=== PATIENT | male | born 1995 | race African-American/Black ===

== ENCOUNTER 2022-05-19 13:10 | Emergency (ER) | payer BC ==
[~2022-05-19] VITALS: Ht 182 cm; Wt 124.2 kg
[2022-05-19 13:15] VITALS: BP 155/94
--- NOTE | 2022-05-19 13:52 | ED Integumentary General ---
General Chief Complaint: Bite-Animal/Human/Insect Stated Complaint: SPIDER BITE Nursing Triage Note: THINKS HE WAS BIT ON HIS LOWER RIGHT LEG BY A SPIDER. PAIN, REDNESS, SWELLING STARTING YESTERDAY. Source: patient Exam Limitations: no limitations History of Present Illness Date Seen by Provider: May 19, 2022 Time Seen by Provider: 13:50 Initial Comments to ER with redness and tenderness to the right lateral lower leg. Suspects a spider bite though he did not see anything bite him. This started yesterday. No systemic symptoms. Timing/Duration: constant Severity: moderate Location: extremities Associated Symptoms: denies symptoms Allergies and Home Medications Allergies Coded Allergies: No Known Drug Allergies (Unverified , 10/19/15) Patient Home Medication List Home Medication List Reviewed: Yes Doxycycline Hyclate (Doxycycline Hyclate) 100 Mg Tablet, 100 MG PO BID Prescribed by: SANYA VIDAL on 05/19/221425 Hydrocodone/Acetaminophen (Hydrocodone-Acetamin 5-325 mg) 5 Mg-325 Mg Tablet, 1 TAB PO Q4H PRN for PAIN-MODERATE (5-7) Prescribed by: SANYA VIDAL on 05/19/221425 Review of Systems Review of Systems Constitutional: see HPI EENTM: see HPI Respiratory: no symptoms reported Cardiovascular: no symptoms reported Genitourinary: no symptoms reported Musculoskeletal: no symptoms reported Skin: no symptoms reported Psychiatric/Neurological: No Symptoms Reported Endocrine: No Symptoms Reported Hematologic/Lymphatic: No Symptoms Reported Past Ffcpmxw-Bftuzk-Pgurqz Hx Patient Social History Tobacco Use?: No Substance use?: No Alcohol Use?: Yes Alcohol Frequency: Once in a while Immunizations Up To Date Tetanus Booster (TDap): More than 5yrs Second COVID19 Vaccination Brendan: UNKNOWN COVID19 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: FILOMENA Past Medical History Reproductive Disorders: No Physical Exam Vital Signs Vital Signs - First Documented 05/19/22 13:15 Temp 36.8 Pulse 58 Resp 16 B/P (MAP) 155/94 (114) Pulse Ox 97 O2 Delivery Room Air Capillary Refill : Less Than 3 Seconds General Appearance: WD/WN, no apparent distress HEENT: PERRL/EOMI, normal ENT inspection Neck: non-tender, full range of motion Cardiovascular: regular rate, rhythm, no murmur Respiratory: normal breath sounds, no respiratory distress, no accessory muscle use Extremities: normal range of motion, non-tender Neurologic/Psychiatric: alert, normal mood/affect, oriented x 3 Skin: normal color, warm/dry Skin Problem Location: lower extremities (Right lower leg) Skin Problem Character: warm, other (Erythema to about a quarter sized area to the lateral aspect of the right lower leg mid tibial region. No fluctuance, no pustule. There is a dusky center. There is about 3 cm of induration around this.) Progress/Results/Core Measures Results/Orders Lab Results Laboratory Tests Test 05/19/22 14:09 Range/Units White Blood Count 8.4 4.3-11.0 10^3/uL Red Blood Count 4.66 4.30-5.52 10^6/uL Hemoglobin 13.9 13.3-17.7 g/dL Hematocrit 41 40-54 % Mean Corpuscular Volume 87 80-99 fL Mean Corpuscular Hemoglobin 30 25-34 pg Mean Corpuscular Hemoglobin Concent 34 32-36 g/dL Red Cell Distribution Width 12.4 10.0-14.5 % Platelet Count 310 130-400 10^3/uL Mean Platelet Volume 9.1 9.0-12.2 fL Immature Granulocyte % (Auto) 0 % Neutrophils (%) (Auto) 65 42-75 % Lymphocytes (%) (Auto) 25 12-44 % Monocytes (%) (Auto) 8 0-12 % Eosinophils (%) (Auto) 1 0-10 % Basophils (%) (Auto) 0 0-10 % Neutrophils # (Auto) 5.4 1.8-7.8 10^3/uL Lymphocytes # (Auto) 2.1 1.0-4.0 10^3/uL Monocytes # (Auto) 0.7 0.0-1.0 10^3/uL Eosinophils # (Auto) 0.1 0.0-0.3 10^3/uL Basophils # (Auto) 0.0 0.0-0.1 10^3/uL Immature Granulocyte # (Auto) 0.0 0.0-0.1 10^3/uL Sodium Level 138 135-145 MMOL/L Potassium Level 4.2 3.6-5.0 MMOL/L Chloride Level 107 98-107 MMOL/L Carbon Dioxide Level 22 21-32 MMOL/L Anion Gap 9 5-14 MMOL/L Blood Urea Nitrogen 22 H 7-18 MG/DL Creatinine 1.38 H 0.60-1.30 MG/DL Estimat Glomerular Filtration Rate 71 BUN/Creatinine Ratio 16 Glucose Level 102 70-105 MG/DL Calcium Level 9.5 8.5-10.1 MG/DL Corrected Calcium 9.3 8.5-10.1 MG/DL Total Bilirubin 0.9 0.1-1.0 MG/DL Aspartate Amino Transf (AST/SGOT) 23 5-34 U/L Alanine Aminotransferase (ALT/SGPT) 32 0-55 U/L Alkaline Phosphatase 45 40-136 U/L C-Reactive Protein High Sensitivity 4.78 H 0.00-0.50 MG/DL Total Protein 8.1 6.4-8.2 GM/DL Albumin 4.3 3.2-4.5 GM/DL My Orders Orders - SANYA VIDAL APRN Cbc With Automated Diff (05/19/22 13:50) Hs C Reactive Protein (05/19/22 13:50) Comprehensive Metabolic Panel (05/19/22 13:50) Vital Signs/I&O 05/19/22 13:15 Temp 36.8 Pulse 58 Resp 16 B/P (MAP) 155/94 (114) Pulse Ox 97 O2 Delivery Room Air Blood Pressure Mean: 114 Departure Impression Primary Impression: Cellulitis of leg without foot, right Disposition: 01 HOME, SELF-CARE Condition: Stable Departure-Patient Inst. Decision time for Depature: 14:24 Referrals: NO,LOCAL PHYSICIAN (PCP/Family) Primary Care Physician Patient Instructions: Cellulitis and Erysipelas (Skin Infections) Add. Discharge Instructions: 1. It is possible this represents a spider bite though it is also possible this is a simple bacterial infection called cellulitis. If this is a spider bite then the antibiotics will have no effect and there is no antivenom that will help. If this is a spider bite the redness and swelling will get worse most likely before getting better. If it is a cellulitis and the antibiotics should help and you will notice improvement within the next 3 to 4 days. Elevate the leg, pain medication as directed. Return to ER for any dark urine, lightheadedness, fevers chills or significant worsening. Otherwise follow-up with your doctor later this week for recheck. If this is a spider bite then cool compresses will help to limit the damage done to tissues by the venom. All discharge instructions reviewed with patient and/or family. Voiced u nderstanding. Scripts Hydrocodone/Acetaminophen (Hydrocodone-Acetamin 5-325 mg) 5 Mg-325 Mg Tablet 1 TAB PO Q4H PRN for PAIN-MODERATE (5-7), #10 TAB Prov: SANYA VIDAL APRN 05/19/22 Doxycycline Hyclate (Doxycycline Hyclate) 100 Mg Tablet 100 MG PO BID, #14 TAB 0 Refills Prov: SANYA VIDAL APRN 05/19/22 Work/School Note: Work Release Form Date Seen in the Emergency Department: May 19, 2022 Return to Work: May 22, 2022 SANYA VIDAL APRN May 19, 2022 13:52
[2022-05-19 14:19] LABS: BASOPHILS % (AUTO) 0 % (0-10); EOSINOPHILS # (AUTO) 0.1 10^3/uL (0.0-0.3); EOSINOPHILS % (AUTO) 1 % (0-10); HEMATOCRIT 41 % (40-54); HEMOGLOBIN 13.9 g/dL (13.3-17.7); LYMPHOCYTES # (AUTO) 2.1 10^3/uL (1.0-4.0); LYMPHOCYTES % (AUTO) 25 % (12-44); MEAN CORPUSCULAR HEMOGLOBIN 30 pg (25-34); MEAN CORPUSCULAR HGB CONC 34 g/dL (32-36); MEAN CORPUSCULAR VOLUME 87 fL (80-99); MEAN PLATELET VOLUME 9.1 fL (9.0-12.2); MONOCYTES # (AUTO) 0.7 10^3/uL (0.0-1.0); MONOCYTES % (AUTO) 8 % (0-12); NEUTROPHILS # (AUTO) 5.4 10^3/uL (1.8-7.8); NEUTROPHILS % (AUTO) 65 % (42-75); PLATELET COUNT 310 10^3/uL (130-400); WHITE BLOOD COUNT 8.4 10^3/uL (4.3-11.0)
[2022-05-19] MEDS ORDERED: ACHD5005 PO (14:26)
[2022-05-19] MEDS ORDERED: DOXY100T2 PO (14:26)
[2022-05-19 14:43] LABS: ALBUMIN 4.3 GM/DL (3.2-4.5); POTASSIUM 4.2 MMOL/L (3.6-5.0)
[2022-05-19 14:44] LABS: CALCIUM 9.5 MG/DL (8.5-10.1)
[2022-05-19 14:46] LABS: TOTAL PROTEIN 8.1 GM/DL (6.4-8.2)
[2022-05-19 14:47] LABS: BILIRUBIN,TOTAL 0.9 MG/DL (0.1-1.0)
[2022-05-19 14:49] LABS: CREATININE SERUM 1.38 MG/DL (0.60-1.30)
== END 2022-05-19 15:01 | disposition home or self-care (01) ==
LOC: EDUNIT# 13:10 → ER 13:13
DX: L03.115 Cellulitis of right lower limb (principal)
CPT/HCPCS: 36415; 80053; 85025; 86141